=== PATIENT | female | born 2000 | race Caucasian/White ===

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

== ENCOUNTER 2019-10-06 02:23 | Emergency (ER) | payer MEDICAID ==
[2019-10-06 02:29] VITALS: BP 120/67; PULSE 85
[2019-10-06] MEDS ORDERED: Take Home: Sulfamethoxazole/Trimethoprim 800-160 MG Tab, 2 Tab Pack PO ONE (02:44)
--- NOTE | 2019-10-06 02:47 | EDM.PDOC ---
ED HPI GENERAL MEDICAL PROBLEM - General Chief Complaint: Genitourinary Problem Stated Complaint: UTI sx Time Seen by Provider: 10/06/19 02:34 Source of Information: Reports: Patient History Limitations: Reports: No Limitations - History of Present Illness INITIAL COMMENTS - FREE TEXT/NARRATIVE: Pt. presents to ER with complaints of dysuria and low back pain for the past 3 days. Pt. states that she had a telehealth appointment yesterday with Dr. Flores for similar symptoms. Pt. states that she was told they were going to start her on 3 days of antibiotics but no antibiotic was started. She continues to have the above symptoms. She also complains of low back pain. No nausea or vomiting. No abdominal pain. Onset Date: 10/05/19 Location: Reports: Pelvis, Generalized Right Flank Pain Score (Numeric/FACES): 5 - Related Data Allergies Allergy/AdvReac Type Severity Reaction Status Date / Time naproxen Allergy Rash Verified 10/06/19 02:24 Home Meds: Home Meds Ibuprofen 400 mg PO Q4H PRN 11/28/16 [History] norethindrone ac-eth estradioL [Malk[place]] 1 each PO DAILY 10/06/19 [History] Past Medical History - Past Health History Medical/Surgical History: Denies Medical/Surgical History Genitourinary History: Reports: UTI, Recurrent Social & Family History - Tobacco Use Smoking Status *Q: Never Smoker ED ROS GENERAL - Review of Systems Review Of Systems: See Below Constitutional: Reports: No Symptoms. Denies: Fever, Chills, Night Sweats, Diaphoresis HEENT: Reports: No Symptoms Respiratory: Reports: No Symptoms Cardiovascular: Reports: No Symptoms Endocrine: Reports: No Symptoms GI/Abdominal: Reports: No Symptoms : Reports: No Symptoms Musculoskeletal: Reports: No Symptoms Skin: Reports: No Symptoms Neurological: Reports: No Symptoms Psychiatric: Reports: No Symptoms Hematologic/Lymphatic: Reports: No Symptoms Immunologic: Reports: No Symptoms ED EXAM, GENERAL - Physical Exam Exam: See Below Exam Limited By: No Limitations General Appearance: Alert, WD/WN, No Apparent Distress Respiratory/Chest: No Respiratory Distress, Lungs Clear, Normal Breath Sounds, No Accessory Muscle Use, Chest Non-Tender Cardiovascular: Normal Peripheral Pulses, Regular Rate, Rhythm, No Edema, No Gallop, No JVD, No Murmur, No Rub Peripheral Pulses: 4+: Radial (L) GI/Abdominal: Soft, Non-Tender, No Distention, No Mass (Female) Exam: Deferred Rectal (Female) Exam: Deferred Back Exam: Normal Inspection, Full Range of Motion Extremities: Normal Inspection, Normal Range of Motion, Non-Tender, No Pedal Edema, Normal Capillary Refill Neurological: Alert, Oriented, CN II-XII Intact, Normal Cognition, Normal Reflexes, No Motor/Sensory Deficits Psychiatric: Normal Affect, Normal Mood Skin Exam: Warm, Dry, Intact, Normal Color, No Rash Course - Vital Signs Last Recorded V/S: Last Vital Signs Temp 37.1 C 10/06/19 02:26 Pulse 85 10/06/19 02:26 Resp 16 10/06/19 02:26 BP 120/67 10/06/19 02:26 Pulse Ox 99 10/06/19 02:26 - Orders/Labs/Meds Labs: Laboratory Tests 10/06/19 Range/Units 02:40 Urine Color Yellow (YELLOW) POC Urine Appearance Cloudy H (CLEAR) POC Urine pH 6.5 (5.0-8.0) Ur Specific [place] 1.020 (1.005-1.030) POC Urine Protein 100 H (NEGATIVE) POC Ur Glucose (UA) Negative (NEGATIVE) POC Urine Ketones Negative (NEGATIVE) POC Ur Occult Blood Large H (NEGATIVE) POC Urine Nitrite Negative (NEGATIVE) POC Urine Bilirubin Negative (NEGATIVE) POC Urine Urobilinogen 0.2 (0.2) POC U Leukocyte Esteras Small H (NEGATIVE) Meds: Medications Discontinued Medications Generic Name Dose Route Start Last Admin Trade Name Darrylq PRN Reason Stop Dose Admin Trimethoprim/Sulfamethoxazole 1 packet 10/06/19 02:44 10/06/19 02:49 Take Home: Sulfameth/Trimet 800-160mg, 2 Pack PO 10/06/19 02:45 1 packet ONETIME ONE Administration Departure - Departure Time of Disposition: 03:30 Disposition: Home, Self-Care 01 Clinical Impression: UTI, Urinary tract infectious disease - Discharge Information Instructions: Urinary Tract Infection, Adult, Sulfamethoxazole; Trimethoprim, SMX-TMP tablets, Probiotics Referrals: PCP,Unobtain [Primary Care Provider] - Forms: ED Department Discharge Additional Instructions: Bactrim DS 1 twice daily until gone. Drink plenty of fluids Tylenol and ibuprofen as needed for discomfort. Return to ER if vomiting/unable to hold down fluids. Sepsis Event Note (ED) - Evaluation Sepsis Screening Result: No Definite Risk - Problem List Review Problem List Initiated/Reviewed/Updated: Yes - Assessment/Plan Plan: Bactrim DS 1 twice daily until gone. Drink plenty of fluids Tylenol and ibuprofen as needed for discomfort. Return to ER if vomiting/unable to hold down fluids.
== END 2019-10-06 02:52 | disposition home or self-care (01) ==
LOC: VM.ED 02:23
DX: N39.0 Urinary tract infection, site not specified (principal); Z88.6 Allergy status to analgesic agent
CPT/HCPCS: 81002; 99283; A9270

== ENCOUNTER 2020-12-30 12:27 | Emergency (ER) | payer MEDICAID ==
[2020-12-30] MEDS ORDERED: Triamcinolone Acetonide 40 MG/ML 1 ML SDV INJECT ONE (13:28)
--- NOTE | 2020-12-30 13:29 | EDM.PDOC ---
ED HPI GENERAL MEDICAL PROBLEM - General Chief Complaint: ENT Problem Stated Complaint: DIZZY, LIGHT HEADED Time Seen by Provider: 12/30/20 13:00 Source of Information: Reports: Patient History Limitations: Reports: No Limitations - History of Present Illness INITIAL COMMENTS - FREE TEXT/NARRATIVE: Deanne is a 20 year old female who presents to ER with complaints her "hayfever acting up". History of allergies and typically gets a Kenalog shot only twice per year. Didn't get one in July as was doing better and got it in the first part of summer but hasn't held her over as long as it normally does. For the last 2 days, has felt sinus pressure, has clear nasal drainage. Postnasal drainage that causes a cough. Feels lightheaded and dizzy at times. NO shortness of breath. No nausea or vomiting. No diarrhea. Admits to pressure in her head but no real headaches. Has some ear pressure, no pain. No fever. No sore throat. Has not taken anything for her current symptoms. Onset: Gradual Duration: Day(s): Location: Reports: Head Quality: Reports: Ache Severity: Mild Associated Symptoms: Reports: Cough, Headaches. Denies: Confusion, Chest Pain, Fever/Chills, Loss of Appetite, Nausea/Vomiting, Shortness of Breath - Related Data Allergies Allergy/AdvReac Type Severity Reaction Status Date / Time naproxen Allergy Rash Verified 10/06/19 02:24 Home Meds: Home Meds Ibuprofen 400 mg PO Q4H PRN 11/28/16 [History] norethindrone ac-eth estradioL [Malka] 1 each PO DAILY 10/06/19 [History] Past Medical History HEENT History: Reports: Allergic Rhinitis Genitourinary History: Reports: UTI, Recurrent Social & Family History - Tobacco Use Tobacco Use Status *Q: Unknown Ever Used Tobacco ED ROS ENT - Review of Systems Review Of Systems: See Below Constitutional: Reports: Malaise. Denies: Fever, Chills, Weakness, Fatigue, Decreased Appetite HEENT: Reports: Rhinitis, Sinus Problem, Vertigo. Denies: Ear Pain, Throat Pain, Throat Swelling Respiratory: Reports: Cough. Denies: Shortness of Breath Cardiovascular: Reports: Lightheadedness. Denies: Chest Pain, Edema Endocrine: Reports: Fatigue GI/Abdominal: Denies: Abdominal Pain, Constipation, Diarrhea, Nausea, Vomiting : Reports: No Symptoms Musculoskeletal: Reports: No Symptoms Skin: Reports: No Symptoms Neurological: Reports: Dizziness, Headache ED EXAM, ENT - Physical Exam Exam: See Below Exam Limited By: No Limitations General Appearance: Alert, WD/WN, No Apparent Distress Ears: Normal External Exam, Normal Canal, Normal TMs Nose: No Blood, Clear Rhinorrhea, Injected Turbinates Mouth/Throat: Normal Inspection, Normal Oropharynx Head: Normocephalic Neck: Normal Inspection, Supple, Non-Tender Respiratory/Chest: No Respiratory Distress, Lungs Clear, Normal Breath Sounds Cardiovascular: Regular Rate, Rhythm GI/Abdominal: Normal Bowel Sounds, Soft, Non-Tender Extremities: Normal Inspection, No Pedal Edema Neurological: Alert, Oriented Skin: Warm, Dry Course - Orders/Labs/Meds Meds: Medications Discontinued Medications Generic Name Dose Route Start Last Admin Trade Name Freq PRN Reason Stop Dose Admin Triamcinolone Acetonide 40 mg 12/30/20 13:28 12/30/20 13:46 Triamcinolone Acetonide 40 Mg/Ml 1 Ml Sdv INJECT 12/30/20 13:29 40 mg ONETIME ONE Administration Departure - Departure Time of Disposition: 14:00 Disposition: Home, Self-Care 01 Condition: Good Clinical Impression: Allergic rhinitis - Discharge Information *PRESCRIPTION DRUG MONITORING PROGRAM REVIEWED*: No *COPY OF PRESCRIPTION DRUG MONITORING REPORT IN PATIENT NAYA: No Instructions: Allergic Rhinitis, Adult, [id number] Forms: ED Department Discharge Additional Instructions: 1. Push fluids 2. Rest 3. Consider zyrtec or claritin for allergy control 4. Follow up with PCP for any further concerns.
[2020-12-30 14:56] VITALS: BP 118/68; PULSE 76
== END 2020-12-30 14:23 | disposition home or self-care (01) ==
LOC: VM.ED 12:27
DX: J30.9 Allergic rhinitis, unspecified (principal); Z88.6 Allergy status to analgesic agent
CPT/HCPCS: 96372; 99283; J3301